=== PATIENT | female | born 1990 | race Caucasian/White ===

== ENCOUNTER 2016-04-13 16:55 | Emergency (ER) | payer OTHER, MEDICAID ==
[2016-04-13] MEDS ORDERED: TYLENOL ONE (21:05)
[2016-04-13] MEDS ORDERED: TYLENOL PO ONE (21:52)
[2016-04-13 21:57] VITALS: BP 103/69
[2016-04-13 22:50] LABS: Bilirubin,Urine NEG (Negative); Blood,Urine MOD (Negative); Ketones,Urine NEG (Negative); Leukocyte Esterase,Urine SM (Negative); Mucus,Urine FEW /HPF; Nitrite,Urine NEG (Negative); Protein,Urine <15 mg/dL mg/dL (Negative); Urobilinogen,Urine < 2.0 mg/dL (<2.0)
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
== END 2016-04-13 23:08 | disposition home or self-care (01) ==
LOC: ED 16:55
DX: N30.01 Acute cystitis with hematuria (principal); M54.5 Low back pain; Z88.0 Allergy status to penicillin; V79.50XA Passenger on bus injured in collision with unspecified motor vehicles in traffic accident, initial encounter; Y93.9 Activity, unspecified; Y99.9 Unspecified external cause status; Y92.410 Unspecified street and highway as the place of occurrence of the external cause
CPT/HCPCS: 81001; 81025; 93005; 93010; 99283